=== PATIENT | male | born 1995 | race Caucasian/White ===

== ENCOUNTER 2018-07-24 12:49 | Emergency (ER) | payer OTHER, MEDICAID ==
[~2018-07-24] VITALS: Ht 172.7 cm; Wt 65.8 kg
[~2018-07-24 12:49] MED LIST: ANTIDEPRESSANT; DOXYCYCLINE 10100 MG PO; HYDROCODONE-AP1 EAC6 PO; IBUPROFEN 800800 M1 PO; KEFLEX250 MG PO; LEVAQUIN 500 M500 M2 PO
[2018-07-24] MEDS ORDERED: KEFLEX500 M1 PO (13:49)
[2018-07-24 14:14] VITALS: BP 130/79
== END 2018-07-24 14:15 | disposition home or self-care (01) ==
LOC: M.ERS 12:49
DX: L02.412 Cutaneous abscess of left axilla (principal); F32.9 Major depressive disorder, single episode, unspecified; F17.210 Nicotine dependence, cigarettes, uncomplicated

== ENCOUNTER 2019-01-13 01:25 | Emergency (ER) | payer OTHER, MEDICAID ==
[~2019-01-13] VITALS: Ht 175.3 cm; Wt 77.1 kg
[~2019-01-13 01:25] MED LIST changes: +KEFLEX500 M1 PO
[2019-01-13 01:32] VITALS: BP 155/90
== END 2019-01-13 02:16 | disposition left against medical advice (07) ==
LOC: M.ERS 01:25
DX: S00.83XA Contusion of other part of head, initial encounter (principal); F17.210 Nicotine dependence, cigarettes, uncomplicated; F32.9 Major depressive disorder, single episode, unspecified; Y04.0XXA Assault by unarmed brawl or fight, initial encounter; Y93.89 Activity, other specified; Y92.89 Other specified places as the place of occurrence of the external cause; Y99.8 Other external cause status

== ENCOUNTER 2019-02-03 12:13 | Emergency (ER) | payer OTHER, MEDICAID | END 2019-02-03 13:06 | disposition home or self-care (01) | LOC: M.ERS 12:13 | DX: Z53.21 Procedure and treatment not carried out due to patient leaving prior to being seen by health care provider (principal) ==

== ENCOUNTER 2019-04-03 09:18 | Emergency (ER) | payer OTHER, MEDICAID ==
[~2019-04-03] VITALS: Ht 177.8 cm; Wt 70.3 kg
[2019-04-03] MEDS ORDERED: AUGMENTIN 500-1 EACH PO (09:35)
[2019-04-03 10:23] VITALS: BP 133/80
== END 2019-04-03 10:24 ==
LOC: M.ERS 09:18
DX: S71.131A Puncture wound without foreign body, right thigh, initial encounter (principal); S90.511A Abrasion, right ankle, initial encounter; F17.210 Nicotine dependence, cigarettes, uncomplicated; F32.9 Major depressive disorder, single episode, unspecified; W54.0XXA Bitten by dog, initial encounter; Y92.89 Other specified places as the place of occurrence of the external cause; Y93.89 Activity, other specified; Y99.8 Other external cause status

== ENCOUNTER 2019-12-06 02:42 | Emergency (ER) | payer OTHER, MEDICAID ==
[~2019-12-06] VITALS: Ht 175.3 cm; Wt 63.5 kg
[~2019-12-06 02:42] MED LIST changes: +AUGMENTIN 500-1 EACH PO
[2019-12-06 02:45] VITALS: BP 150/93
--- NOTE | 2019-12-08 14:29 | EKG ---
[place] [address] ELECTROCARDIOGRAM REPORT Name: TERESSA DIAZ Room: [facility]#: [id number] Admission: 12/06/19 Attend Phys: Discharge: 12/06/19 Date of : [birth year] Date of Service: 12/06/19317 Report #: [id number] THIS REPORT FOR: //name// [facility] ED Test Date: 2019-12-06 Test Time: 03:18:04 Pat Name: TERESSA DIAZ Department: Room: Gender: Trash [employer]or: [place] : 1995 Requested By: Jennifer Villatoro Order Number: [id number] Teo MD: Wyatt Julian Measurements Intervals [place] Rate: 102 P: 74 [place]: 201 QRS: 81 QRSD: 96 T: 58 QT: 352 QTc: 459 Interpretive Statements Sinus tachycardia Borderline prolonged [place] interval Compared to ECG 07/13/2009 13:30:59 Sinus rhythm no longer present pac's no longer present Electronically Signed On 12-08-2019 14:27:30 CDT by Wyatt Julian [email or web address] <ELECTRONICALLY SIGNED> By: Wyatt Julian MD, [facility] 12/08/19 1427 0318 Wyatt Julian MD, [facility] /EPI
== END 2019-12-06 03:32 | disposition home or self-care (01) ==
LOC: M.ERS 02:42
DX: R51 Headache (principal); F32.9 Major depressive disorder, single episode, unspecified; F17.210 Nicotine dependence, cigarettes, uncomplicated